=== PATIENT | female | born 1980 | race Caucasian/White ===

== ENCOUNTER 2017-01-03 10:58 | Day surgery (SDC) | payer OTHER ==
--- NOTE | ~2017-01-03 | EGD ---
EGD REPORT [facility] [address] [address] NAME: ALEJANDRA HUMPHREYS : [birth year] STATUS : REG [facility]#: [id number] AGE: 36 ADM/REG DATE : 01/03/17 MR#: [id number] REPORT SERV DATE: 01/03/17 DICTATED BY: EWELINA PETE DATE: 01/03/17 REPORT STATUS : Draft TRANSCRIBED BY: [facility] DATE: 01/03/17 [facility] Center Patient Name: Alejandra Humphreys Date of : 1980 Attending MD: EWELINA PETE MD Procedure Date No Time: 01/03/2017 Procedure: Colonoscopy Indications: Rectal bleeding, Anemia, FH of Colonic Polyps - 1st degree relative Referring MD: CRAIG QUIROZ Medicines: as per anesthesia Complications: No immediate complications. Procedure: Pre-Anesthesia Assessment: - ASA Grade Assessment: II - A patient with mild systemic disease. After I obtained informed consent, the scope was passed under direct vision. Throughout the procedure, the patient's blood pressure, pulse, and oxygen saturations were monitored continuously. The [facility] [id number] was introduced through the anus and advanced to the cecum, identified by appendiceal orifice and ileocecal valve. The colonoscopy was performed without difficulty. The patient tolerated the procedure. The quality of the bowel preparation was adequate to identify polyps. Findings: The perianal and digital rectal examinations were normal. The colon (entire examined portion) appeared normal. Impression: - The entire examined colon is normal. Recommendation: - Repeat colonoscopy in 5 years for surveillance. Procedure Code(s): --- Professional --- 11924, Colonoscopy, flexible, proximal to splenic flexure; diagnostic, with or without collection of specimen(s) by brushing or washing, with or without colon decompression (separate procedure) Diagnosis Code(s): --- Professional --- K62.5, Hemorrhage of anus and rectum D64.9, Anemia, unspecified Z83.71, Family history of colonic polyps EGD REPORT [facility] [address] [address] NAME: ALEJANDRA HUMPHREYS : [birth year] STATUS : REG [facility] PAT#: [id number] AGE: 36 ADM/REG DATE : 01/03/17 MR#: [id number] REPORT SERV DATE: 01/03/17 DICTATED BY: EWELINA PETE. DATE: 01/03/17 REPORT STATUS : Draft TRANSCRIBED BY: [employer] DATE: 01/03/17 CPT copyright 2013 [employer]. All rights reserved. The codes documented in this report are preliminary and upon supervisor [employer] review may be revised to meet current compliance requirements. EWELINA PETE MD 01/03/2017 2:08 PM This report has been signed electronically. Number of Addenda: 0 Note Initiated On: 01/03/2017 1:38 PM Scope Withdrawal Time 0 hours 8 minutes 40 seconds [address] [address]
[~2017-01-03 10:58] MED LIST: ACET500CAP PO
== END 2017-01-03 23:59 | disposition home health service (06) ==
LOC: DMU 10:58
PROVIDERS: Internal Medicine Gastroenterology
PROC: 0DJD8ZZ Inspection of Lower Intestinal Tract, Via Natural or Artificial Opening Endoscopic (ICD-10-PCS; principal; 2017-01-03 12:00)
DX: K62.5 Hemorrhage of anus and rectum (principal); Z83.71 Family history of colonic polyps; Z79.899 Other long term (current) drug therapy; Z98.890 Other specified postprocedural states
CPT/HCPCS: 84703